=== PATIENT | female | born 1995 | race Caucasian/White ===

== ENCOUNTER 2020-07-14 21:44 | Emergency (ER) | payer BC, OTHER ==
[2020-07-14] MEDS ORDERED: TORAdol 30 mg Injection IM ONE (22:13)
[2020-07-14] MEDS ORDERED: TORAdol 30 mg Injection ONE (22:14)
[2020-07-14] MEDS ORDERED: Hydromorphone 1 mg/ml Injection ONE (22:43)
[2020-07-14] MEDS ORDERED: Hydromorphone 1 mg/ml Injection IM ONE (22:50)
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
[2020-07-14 23:45] LABS: Amphetamine,Urine NEGATIVE (NEGATIVE); Benzodiazepine,Urine NEGATIVE (NEGATIVE); Cocaine,Urine NEGATIVE (NEGATIVE); Methadone,Urine NEGATIVE (NEGATIVE); Opiate,Urine NEGATIVE (NEGATIVE); PCP,Urine NEGATIVE (NEGATIVE); THC,Urine NEGATIVE (NEGATIVE)
[2020-07-14 23:53] LABS: Barbiturate,Urine NEGATIVE (NEGATIVE)
[2020-07-15] MEDS ORDERED: Norflex 60 MG/2 ML IM ONE (00:06)
[2020-07-15] MEDS ORDERED: Norflex 60 MG/2 ML ONE (00:30)
[2020-07-15 00:38] VITALS: BP 119/65; PULSE 85
[2020-07-15 01:18] VITALS: O2SAT 99
--- NOTE | 2020-07-15 09:17 | XRAY ---
Indication: Back pain 4 days. No known injury. Multiple contiguous axial images obtained through the thoracic spine. Sagittal and coronal reformatted images obtained. Comparison: None Axial images negative for acute fracture, suspicious bony lesions, or spinal canal stenosis. Sagittal and coronal reformatted images demonstrates minimal dextroscoliosis centered at T6. The vertebral body heights/disc spaces are maintained. Visualized noncontrasted soft tissues demonstrates minimal right infrahilar fibrosis/scarring. Posterior right lower lobe demonstrates a indeterminant 4 x 9 x 8 mm peripheral noncalcified nodularity with irregular margins. Impression: 1. Subcentimeter peripheral right lower lobe indeterminant noncalcified nodularity. Finding too small for PET/CT. CT chest with contrast exam may yield further information. 2. Remaining CT thoracic spine is negative. Comment: Preliminary interpretation was made by [facility] who does not report incidental right lower lobe finding not reported.
== END 2020-07-15 01:00 | disposition home or self-care (01) ==
LOC: ED 21:44
DX: M54.6 Pain in thoracic spine (principal); M54.2 Cervicalgia; V89.2XXA Person injured in unspecified motor-vehicle accident, traffic, initial encounter
CPT/HCPCS: 72128; 80307; 84703; 96372; 99284; J1170; J1885; J2360